=== PATIENT | male | born 1950 | race Caucasian/White ===

== ENCOUNTER 2024-01-31 09:54 | Emergency (ER) | payer MEDICARE, BC ==
[~2024-01-31] VITALS: Ht 162.6 cm; Wt 72.6 kg
[2024-01-31] MEDS: ACETAMINOPHEN 325 MG TABLET PO ONE (10:13)
[2024-01-31] MEDS: IBUPROFEN 600 MG TABLET PO ONE (10:13)
[2024-01-31] MEDS ORDERED: IBUPROFEN 600 MG TABLET ONE (10:13)
[2024-01-31] MEDS ORDERED: ACETAMINOPHEN 325 MG TABLET ONE (10:13)
[2024-01-31] MEDS ORDERED: IBUP-1955 PO (12:08)
[2024-01-31] MEDS ORDERED: LIDO30AD10 TP (12:08)
[2024-01-31] MEDS ORDERED: LIDOCAINE 5% (PATCH) 1 EA PATCH TP ONE (12:25)
[2024-01-31] MEDS: LIDOCAINE 5% (PATCH) 1 EA PATCH TP STA (12:30)
[2024-01-31] MEDS ORDERED: oxyCODONE IR immediate release 5 MG TABLET ONE (12:31)
[2024-01-31] MEDS: oxyCODONE IR immediate release 5 MG TABLET PO STA (12:33)
[2024-01-31 12:46] VITALS: BP 151/75; TEMP 98.2; O2SAT 98
== END 2024-01-31 12:46 | disposition home or self-care (01) ==
LOC: ER 09:56
DX: M25.512 Pain in left shoulder (principal); I10 Essential (primary) hypertension; F41.9 Anxiety disorder, unspecified; F31.9 Bipolar disorder, unspecified; F20.9 Schizophrenia, unspecified; E78.5 Hyperlipidemia, unspecified; Z88.8 Allergy status to other drugs, medicaments and biological substances
CPT/HCPCS: 73030-TC

== ENCOUNTER 2024-09-10 06:27 | Inpatient (IN) | payer MEDICARE, BC, MEDICAID ==
[~2024-09-10] VITALS: Ht 170.2 cm; Wt 74.8 kg
[~2024-09-10 06:27] MED LIST: IBUP-1955 PO; LIDO30AD10 TP
[2024-09-10] MEDS: ACETAMINOPHEN 325 MG TABLET PO ONE (07:30)
[2024-09-10 07:44] LABS: CALCIUM, SERUM 8.2 mg/dL (8.5-10.1); CARBON DIOXIDE 23 mmol/L (21-32); CHLORIDE 102 mmol/L (98-107); CREATININE 1.4 mg/dL (0.6-1.3); GLUCOSE 144 mg/dL (74-106); POTASSIUM 3.1 mmol/L (3.5-5.1); SODIUM SERUM 137 mmol/L (136-145); UREA NITROGEN, BLOOD 26 mg/dL (7-18)
[2024-09-10 07:52] LABS: ALANINE AMINOTRANSFERASE 56 U/L (12-78); ALBUMIN 3.7 g/dL (3.4-5.0); ALKALINE PHOSPHATASE 83 U/L (46-116); ASPARTATE AMINOTRANSFERASE 89 U/L (15-37); BILIRUBIN,DIRECT 0.2 mg/dL (0.0-0.2); BILIRUBIN,TOTAL 0.6 mg/dL (0.2-1.0); LIPASE 20 U/L (16-77); TOTAL PROTEIN, SERUM 7.3 g/dL (6.4-8.2)
[2024-09-10 08:06] LABS: BASOPHILS % (AUTO) 0.5 % (0.0-2.0); HEMATOCRIT 44 % (39-51); HEMOGLOBIN 15.7 g/dL (13.5-17.5); LYMPHOCYTES # (AUTO) 0.3 K/uL (0.8-4.8); LYMPHOCYTES % (AUTO) 4.2 % (20.0-44.0); MEAN CORPUSCULAR HEMOGLOBIN 34 PG (26.0-33.0); MEAN CORPUSCULAR HGB CONC 36 g/dl (31.0-36.0); MEAN CORPUSCULAR VOLUME 96 fL (80-96); MONOCYTES # (AUTO) 0.4 K/uL (0.1-1.30); MONOCYTES % (AUTO) 5.5 % (2.0-12.0); NEUTROPHILS # (AUTO) 6.3 K/uL (1.8-8.9); NEUTROPHILS % (AUTO) 89.8 % (43.0-81.0); PLATELET COUNT (AUTO) 214 K/uL (150-450); RED BLOOD CELL COUNT(AUTO) 4.61 MIL/uL (4.5-6.0); RED CELL DISTRIBUTION WIDTH 12.7 % (11.5-15.0); WHITE BLOOD COUNT (AUTO) 7.1 K/uL (4.3-11.0)
[2024-09-10] MEDS: POTASSIUM CHLORIDE 20 MEQ TAB.PRT.SR PO ONE (08:30)
[2024-09-10] MEDS: IV NS 0.9% 1,000 ML BAG IV ONE (09:00)
[2024-09-10] MEDS ORDERED: PIPERACI/TAZO 3.375GM/D5W 50ML PB IV ONE (09:10)
[2024-09-10] MEDS ORDERED: ACETAMINOPHEN ES 500 MG TABLET ONE (09:11)
[2024-09-10] MEDS ORDERED: POTASSIUM CHLORIDE 20 MEQ TAB.PRT.SR PO ONE (09:11)
[2024-09-10] MEDS ORDERED: ACETAMINOPHEN 650 MG/SUPP.RECT RC ONE (09:26)
[2024-09-10] MEDS: PIPERACILLIN /TAZOBACTAM 3.375 G in IV D5W 50 ML IV ONE (09:30)
[2024-09-10] MEDS: ACETAMINOPHEN 650 MG/SUPP.RECT RC ONE (09:30)
[2024-09-10] MEDS: IV NS 0.9% 500 ML BAG IV ONE (10:00)
[2024-09-10] MEDS ORDERED: AMLO5TAB4 PO (11:11)
[2024-09-10] MEDS ORDERED: THIA100T70 PO (11:11)
[2024-09-10] MEDS ORDERED: ESCI10TA PO (11:11)
[2024-09-10] MEDS ORDERED: DIPH25TA23 PO (11:11)
[2024-09-10] MEDS ORDERED: ONDA-97 PO (11:11)
[2024-09-10] MEDS ORDERED: FLUT16SP16 BNOSTRILS (11:11)
[2024-09-10] MEDS ORDERED: LANS30CA56 PO (11:11)
[2024-09-10] MEDS ORDERED: MULT-213 PO (11:11)
[2024-09-10] MEDS ORDERED: HYDR453.3 TP (11:11)
[2024-09-10] MEDS ORDERED: LOSA1TAB39 PO (11:11)
[2024-09-10] MEDS ORDERED: ATOR10TA PO (11:11)
[2024-09-10] MEDS ORDERED: LIDO30AD10 TP (11:11)
[2024-09-10] MEDS ORDERED: IBUP-2715 PO (11:11)
[2024-09-10] MEDS ORDERED: HYDR-4077 PO (11:11)
[2024-09-10] MEDS ORDERED: CYAN500T9 PO (11:11)
[2024-09-10] MEDS ORDERED: CLON0.1T PO (11:11)
[2024-09-10] MEDS ORDERED: OLAN2.5T3 PO (11:11)
[2024-09-10] MEDS ORDERED: DIPH30CR2 TP (11:11)
[2024-09-10] MEDS ORDERED: CETI10TA14 PO (11:11)
[2024-09-10] MEDS ORDERED: LORA-258 PO (11:11)
[2024-09-10] MEDS ORDERED: OMEP40CA21 PO (11:11)
[2024-09-10] MEDS ORDERED: OLME1TAB22 PO (11:11)
[2024-09-10] MEDS ORDERED: MAGN400O6 PO (11:11)
[2024-09-10 12:14] LABS: APPEARANCE,URINE SLIGHTLY CLOUDY (CLEAR); BILIRUBIN,URINE NEGATIVE (NEGATIVE); BLOOD, URINE TRACE-INTA Ery/uL (NEGATIVE); COLOR,URINE DARK YELLOW (YELLOW); KETONES,URINE TRACE mg/dL (NEGATIVE); LEUKOCYTE ESTERASE ,URINE NEGATIVE (NEGATIVE); NITRITE, URINE NEGATIVE (NEGATIVE); PH,URINE 5.5 (5.0-8.0); PROTEIN,URINE 2+ mg/dl (NEGATIVE); UGLUCOSE TRACE mg/dL (NEGATIVE); UROBILINOGEN,URINE 0.2 EU/dL (0.2)
[2024-09-10 12:17] LABS: ADD URINE CULTURE NO; BACTERIA,URINE Few /HPF (None Seen); RBC,URINE 0-2 /HPF (0-2)
[2024-09-10 12:18] LABS: COARSE GRANULAR CASTS,URINE Rare /LPF (None Seen); FINE GRANULAR CASTS,URINE Few /LPF (None Seen); MUCUS,URINE Few /LPF (None Seen); SQUAMOUS EPITHELIAL CELL,UR 0-2 /HPF (None Seen); URINE AMORPHOUS URATE Few /HPF (None Seen)
[2024-09-10] MEDS ORDERED: MAGNESIUM HYDROXIDE 30 ML UDC PO PRN (16:30)
[2024-09-10] MEDS ORDERED: ACETAMINOPHEN 325 MG TABLET PO PRN (16:30)
[2024-09-10] MEDS ORDERED: MAG HYDROX/AL HYDROX/SIMETH 30 ML UDC PO PRN (16:30)
[2024-09-10] MEDS ORDERED: Z GUARD REMEDY 4 OZ OINT TP PRN (16:30)
[2024-09-10] MEDS ORDERED: ONDANSETRON HCL/PF 4 MG/2 ML VIAL IVP PRN (16:30)
[2024-09-10] MEDS: ENOXAPARIN SODIUM 30 MG/0.3 ML DISP.SYRIN SQ SCH (18:54)
[2024-09-10] MEDS: VANCOMYCIN HCL 1.25 GM in IV D5W 250 ML IV ONE (19:10)
[2024-09-10] MEDS: IV NS 0.9% 1,000 ML IV SCH (19:10)
[2024-09-10 20:00] VITALS: BP 133/83; TEMP 97.3; O2SAT 96
[2024-09-10] MEDS: CEFEPIME 2 GM in IV D5W 100 ML IV SCH (21:55)
[2024-09-11] VITALS: BP 163/94; TEMP 98.8; O2SAT 97
[2024-09-11] MEDS: TEMAZEPAM 7.5 MG CAPSULE PO ONE (00:21)
[2024-09-11] MEDS ORDERED: METRONIDAZOLE 500MG/ NS 100ML 100 ML IV ONE (03:31)
[2024-09-11] MEDS: METRONIDAZOLE 500MG/ NS 100ML 500 MG in PREMIX 1 EA IV SCH (04:22)
[2024-09-11 05:15] VITALS: BP 153/79; TEMP 98.6; O2SAT 97
[2024-09-11 07:26] LABS: BASOPHILS % (AUTO) 0.2 % (0.0-2.0); EOSINOPHILS % (AUTO) 0.2 % (0.0-6.0); HEMATOCRIT 38 % (39-51); HEMOGLOBIN 13.4 g/dL (13.5-17.5); LYMPHOCYTES # (AUTO) 0.9 K/uL (0.8-4.8); LYMPHOCYTES % (AUTO) 10.3 % (20.0-44.0); MEAN CORPUSCULAR HEMOGLOBIN 34 PG (26.0-33.0); MEAN CORPUSCULAR HGB CONC 35 g/dl (31.0-36.0); MEAN CORPUSCULAR VOLUME 95 fL (80-96); MONOCYTES # (AUTO) 0.4 K/uL (0.1-1.30); MONOCYTES % (AUTO) 4.9 % (2.0-12.0); NEUTROPHILS % (AUTO) 84.4 % (43.0-81.0); PLATELET COUNT (AUTO) 169 K/uL (150-450); RED BLOOD CELL COUNT(AUTO) 3.99 MIL/uL (4.5-6.0); RED CELL DISTRIBUTION WIDTH 13.1 % (11.5-15.0); WHITE BLOOD COUNT (AUTO) 8.3 K/uL (4.3-11.0)
[2024-09-11 07:30] VITALS: BP 152/80; TEMP 98.2; O2SAT 95
[2024-09-11 07:55] VITALS: BP 152/80; TEMP 98.2; O2SAT 95
[2024-09-11 14:33] LABS: CALCIUM, SERUM 7.4 mg/dL (8.5-10.1); CREATININE 1.2 mg/dL (0.6-1.3); MAGNESIUM 1.8 mg/dL (1.8-2.4); PHOSPHORUS 2.1 mg/dL (2.5-4.9); POTASSIUM 2.9 mmol/L (3.5-5.1)
[2024-09-11 16:00] VITALS: BP 167/91; TEMP 98.6; O2SAT 96
[2024-09-11] MEDS: K PHOS NEUTRAL 250 MG TABLET PO ONE (16:46)
[2024-09-11] MEDS: POTASSIUM CHLORIDE 20 MEQ TAB.PRT.SR PO SCH (16:52)
[2024-09-11] MEDS ORDERED: VANCOMYCIN HCL 1.25 GM in IV D5W 250 ML IV SCH (18:00)
[2024-09-11] MEDS: LORAZEPAM 0.5 MG TABLET PO PRN (18:11)
[2024-09-11 20:00] VITALS: BP_SYST 162; BP_SYST 163; BP_DIAS 86; BP_DIAS 89; TEMP 98; TEMP 98.2; O2SAT 95
[2024-09-11] MEDS: CLONIDINE HCL 0.1 MG TABLET PO PRN (23:02)
[2024-09-12] VITALS: BP 146/80; TEMP 97.7; O2SAT 95
[2024-09-12 04:00] VITALS: BP 158/96; TEMP 97.7; O2SAT 96
[2024-09-12 07:28] LABS: BILIRUBIN,TOTAL 0.6 mg/dL (0.2-1.0); CALCIUM, SERUM 7.9 mg/dL (8.5-10.1); PHOSPHORUS 2.5 mg/dL (2.5-4.9); TOTAL PROTEIN, SERUM 6.2 g/dL (6.4-8.2)
[2024-09-12 07:30] VITALS: BP 166/91; TEMP 98.4; O2SAT 95
[2024-09-12 07:58] LABS: BASOPHILS % (AUTO) 0.3 % (0.0-2.0); EOSINOPHILS # (AUTO) 0.1 K/uL (0.0-0.7); EOSINOPHILS % (AUTO) 1.5 % (0.0-6.0); HEMATOCRIT 39 % (39-51); HEMOGLOBIN 13.6 g/dL (13.5-17.5); LYMPHOCYTES % (AUTO) 15.9 % (20.0-44.0); MEAN CORPUSCULAR HEMOGLOBIN 33 PG (26.0-33.0); MEAN CORPUSCULAR HGB CONC 35 g/dl (31.0-36.0); MEAN CORPUSCULAR VOLUME 94 fL (80-96); MONOCYTES # (AUTO) 0.5 K/uL (0.1-1.30); MONOCYTES % (AUTO) 8.4 % (2.0-12.0); NEUTROPHILS # (AUTO) 4.5 K/uL (1.8-8.9); NEUTROPHILS % (AUTO) 73.9 % (43.0-81.0); PLATELET COUNT (AUTO) 188 K/uL (150-450); RED BLOOD CELL COUNT(AUTO) 4.09 MIL/uL (4.5-6.0); RED CELL DISTRIBUTION WIDTH 12.6 % (11.5-15.0)
[2024-09-12 08:01] LABS: POTASSIUM 2.6 mmol/L (3.5-5.1)
[2024-09-12] MEDS ORDERED: ENOXAPARIN SODIUM 40 MG/0.4 ML DISP.SYRIN SQ SCH (09:00)
[2024-09-12] MEDS: ENOXAPARIN SODIUM 40 MG/0.4 ML DISP.SYRIN SQ SCH (09:00)
[2024-09-12] MEDS: POTASSIUM CHLORIDE 20 MEQ TAB.PRT.SR PO ONE (09:32)
[2024-09-12] MEDS: CLONIDINE HCL 0.1 MG TABLET PO PRN (09:42)
[2024-09-12] MEDS ORDERED: Medication Not On Formulary EA (Lansoprazole 30 MG) PO SCH (10:00)
[2024-09-12] MEDS ORDERED: ONDANSETRON 4 MG TAB.RAPDIS PO PRN (10:30)
[2024-09-12] MEDS: ESCITALOPRAM OXALATE (10 MG) 10 MG TABLET PO SCH (11:01)
[2024-09-12] MEDS: OLANZAPINE 2.5 MG TABLET PO SCH (11:02)
[2024-09-12] MEDS: hydrALAZINE HCL 50 MG TABLET PO SCH (11:02)
[2024-09-12] MEDS: FLUTICASONE PROPIONATE 16 GM BOTTLE NS SCH (11:31)
[2024-09-12 16:00] VITALS: BP 148/79; TEMP 98.2; O2SAT 96
[2024-09-12 20:00] VITALS: BP 156/80; TEMP 98.1; O2SAT 96
[2024-09-13] VITALS: BP 159/90; TEMP 97.7; O2SAT 97
[2024-09-13 04:58] VITALS: BP 157/74; TEMP 97.8; O2SAT 97
[2024-09-13 05:03] VITALS: BP 157/74; TEMP 97.8; O2SAT 97
[2024-09-13 07:00] VITALS: BP 166/85; TEMP 98.1; O2SAT 98
[2024-09-13 07:08] LABS: PTH, INTACT 47 pg/mL (15-65)
[2024-09-13 07:24] LABS: BASOPHILS % (AUTO) 0.5 % (0.0-2.0); EOSINOPHILS # (AUTO) 0.2 K/uL (0.0-0.7); HEMATOCRIT 39 % (39-51); HEMOGLOBIN 14.3 g/dL (13.5-17.5); LYMPHOCYTES % (AUTO) 17.7 % (20.0-44.0); MEAN CORPUSCULAR HEMOGLOBIN 34 PG (26.0-33.0); MEAN CORPUSCULAR HGB CONC 37 g/dl (31.0-36.0); MEAN CORPUSCULAR VOLUME 94 fL (80-96); MONOCYTES # (AUTO) 0.6 K/uL (0.1-1.30); MONOCYTES % (AUTO) 10.1 % (2.0-12.0); NEUTROPHILS # (AUTO) 3.9 K/uL (1.8-8.9); NEUTROPHILS % (AUTO) 68.7 % (43.0-81.0); PLATELET COUNT (AUTO) 192 K/uL (150-450); RED BLOOD CELL COUNT(AUTO) 4.18 MIL/uL (4.5-6.0); RED CELL DISTRIBUTION WIDTH 12.9 % (11.5-15.0); WHITE BLOOD COUNT (AUTO) 5.7 K/uL (4.3-11.0)
[2024-09-13] MEDS: PANTOPRAZOLE 40 MG TABLET.DR PO SCH (07:39)
[2024-09-13 08:11] LABS: CALCIUM, SERUM 8.3 mg/dL (8.5-10.1); CREATININE 0.9 mg/dL (0.6-1.3); POTASSIUM 3.3 mmol/L (3.5-5.1)
[2024-09-13] MEDS: AMLODIPINE BESYLATE 5 MG TABLET PO SCH (08:29)
[2024-09-13] MEDS: POTASSIUM CHLORIDE 20 MEQ TAB.PRT.SR PO SCH (11:35)
[2024-09-13 13:02] VITALS: BP 142/79
[2024-09-14 14:09] LABS: *SPE ALBUMIN 2.9 g/dL (2.9-4.4); *SPE ALPHA-1-GLOBULIN 0.3 g/dL (0.0-0.4); *SPE ALPHA-2-GLOBULIN 0.9 g/dL (0.4-1.0); *SPE GLOBULIN, TOTAL 2.9 g/dL (2.2-3.9); *SPE M-SPIKE Not Observed g/dL (Not Observed); *SPE PROTEIN TOTAL 5.8 g/dL (6.0-8.5); *SPEGAMMA GLOBULIN 0.7 g/dL (0.4-1.8)
== END 2024-09-13 14:00 | DRG 871 ==
LOC: ER 06:30 → TELE 16:25
PROVIDERS: ADMIT Internal Medicine; ATTEND Internal Medicine
DX: A41.9 Sepsis, unspecified organism (principal); N17.0 Acute kidney failure with tubular necrosis; A04.8 Other specified bacterial intestinal infections; D64.9 Anemia, unspecified; I10 Essential (primary) hypertension; E78.5 Hyperlipidemia, unspecified; K44.9 Diaphragmatic hernia without obstruction or gangrene; F20.9 Schizophrenia, unspecified; Z88.8 Allergy status to other drugs, medicaments and biological substances; Z79.899 Other long term (current) drug therapy; F32.9 Major depressive disorder, single episode, unspecified; F29 Unspecified psychosis not due to a substance or known physiological condition; K57.10 Diverticulosis of small intestine without perforation or abscess without bleeding; E87.6 Hypokalemia; K76.0 Fatty (change of) liver, not elsewhere classified; K80.20 Calculus of gallbladder without cholecystitis without obstruction; K82.8 Other specified diseases of gallbladder; M89.8X9 Other specified disorders of bone, unspecified site
CPT/HCPCS: 36415; 70450-TC; 71045-TC; 76700-TC; 80048-TC; 80053-TC; 80076-TC; 81001; 82550-TC; 83605-TC; 83690-TC; 83735-TC; 83970; 84100-TC; 84132-TC; 84155; 84165; 84484-TC; 85025-TC; 87040-TC; 87086-TC; 97112-TC; 97116-TC; 97530-TC; A4216; A4223; G0378; J0692; J1650; J2543; J7030; J7060